=== PATIENT | female | born 1985 | race African-American/Black ===

== ENCOUNTER 2023-04-22 22:44 | Observation (INO) | payer BC ==
[2023-04-23] MEDS ORDERED: Dextrose 50% Abboject 50 ML SYRINGE SLOW IVP PRN (00:20)
[2023-04-23] MEDS ORDERED: Dextrose 5% in Water 1,000 ML IV PRN (00:20)
[2023-04-23] MEDS ORDERED: Glucagon 1 MG/ML KIT IM PRN (00:20)
[2023-04-23] MEDS ORDERED: Ondansetron PF 4 MG/2 ML Vial IVP PRN (00:20)
[2023-04-23] MEDS ORDERED: Insulin Regular 300 UNITS/3 ML VIAL SC SCH (00:30)
[2023-04-23] MEDS ORDERED: Famotidine/PF 20 mg/2ml Vial SLOW IVP SCH (00:30)
[2023-04-23] MEDS ORDERED: Magnesium 2 GM/50 ML(in water) 2 GM in Premix Bag 1 BAG IVPB SCH (00:30)
[2023-04-23] MEDS ORDERED: Thiamine HCl 200 MG/2 ML VIAL SLOW IVP SCH ×2 (00:30→21:00)
[2023-04-23] MEDS ORDERED: Potassium Chloride 20 MEQ in Premix Bag 1 BAG IVPB SCH (00:30)
[2023-04-23] MEDS: Morphine 2 MG/ML VIAL SLOW IVP PRN ×6 (01:21→21:57)
[2023-04-23] MEDS: NS 0.9% w/ 40 MEQ KCL 1,000 ML IV SCH ×2 (01:33→08:40)
[2023-04-23 04:54] LABS: #Basophils 0.1 10x3/uL (0.0-0.2); #Eosinphils 0.3 10x3/uL (0.0-0.5); #Monocytes 0.5 10x3/uL (0.0-1.1); #Neutrophils 3.2 10x3/uL (1.5-8.4); %Basophils 0.8 % (0.0-2.0); %Eosinophils 5.2 % (0.0-6.0); %Lymphocytes 32.7 % (18.0-47.0); %Monocytes 8.7 % (0.0-10.0); %Neutrophils 52.3 % (40.0-75.0); Hematocrit 34.6 % (34.9-44.5); Hemoglobin 12.3 g/dL (12.0-15.5); Mean Corpuscular HGB CONC 35.5 g/dL (32.0-36.0); Mean Corpuscular Hemoglobin 30.1 pg (27.0-33.0); Mean Corpuscular Volume 84.8 fl (81.6-98.3); Platelet Count 245 10x3/uL (150-450); RBC Distribution Width 12.7 % (11.5-14.5); Red Blood Cell (RBC) Count 4.08 10x6/uL (3.90-5.03); White Blood Cell (WBC) Count 6.1 10x3/uL (3.5-10.5)
[2023-04-23 05:13] LABS: ALT (SGPT) 60 U/L (8-55); AST (SGOT) 94 U/L (5-34); Albumin 3.5 g/dL (3.5-5.0); Alkaline Phosphatase 68 U/L (40-110); Anion Gap 16 mmol/L (10-20); BUN (Urea Nitrogen) Less than 4 mg/dL (7.0-18.7); Bilirubin, Total 0.6 mg/dL (0.2-1.2); Calc. Creatinine Clearance 0 mL/min (70-130); Calcium 7.8 mg/dL (7.8-10.44); Carbon Dioxide 16 mmol/L (22-29); Chloride 102 mmol/L (98-107); Estimated GFR 116; Globulin 2.5 g/dL (2.4-3.5); Glucose 226 mg/dL (70-105); Lipase 41 U/L (8-78); Phosphorus 2.1 mg/dL (2.3-4.7); Potassium 3.5 mmol/L (3.5-5.1); Sodium 130 mmol/L (136-145)
[2023-04-23 05:34] LABS: Cardiac Risk 4.9 (Less than 4.5); Cholesterol 107 mg/dl (< 200 Desired); HDL Cholesterol 22 mg/dL (>60 Neg Risk); Triglycerides 496 mg/dL (Less than 150)
[2023-04-23] MEDS ORDERED: Potassium Phosphate 30 MMOL in Sodium Chloride 0.9% 250 ML 250 ML IVPB SCH ×2 (06:00→08:00)
[2023-04-23] MEDS: Magnesium 2 GM/50 ML(in water) 2 GM in Premix Bag 1 BAG IVPB SCH ×2 (06:18→09:01)
[2023-04-23 06:35] VITALS: BMI 28.2
[2023-04-23] MEDS ORDERED: HYDROmorphone 0.5 MG/0.5 ML SYRINGE SLOW IVP SCH (06:45)
[2023-04-23 06:54] LABS: Magnesium 2.1 mg/dL (1.6-2.6)
[2023-04-23] MEDS: Famotidine/PF 20 mg/2ml Vial SLOW IVP SCH ×2 (08:40→20:01)
[2023-04-23] MEDS: Folic Acid 1 MG TAB PO SCH (08:41)
[2023-04-23] MEDS: Prenatal Vitamin 1 TAB PO SCH (11:29)
[2023-04-23 12:06] LABS: #Basophils 0.1 10x3/uL (0.0-0.2); #Eosinphils 0.2 10x3/uL (0.0-0.5); #Monocytes 0.6 10x3/uL (0.0-1.1); %Monocytes 8.5 % (0.0-10.0); %Neutrophils 58.1 % (40.0-75.0); Hematocrit 33.6 % (34.9-44.5); Hemoglobin 11.8 g/dL (12.0-15.5); Mean Corpuscular HGB CONC 35.1 g/dL (32.0-36.0); Mean Corpuscular Hemoglobin 30.3 pg (27.0-33.0); Mean Corpuscular Volume 86.4 fl (81.6-98.3); Mean Platelet Volume 11.2 fl (7.4-10.4); Platelet Count 242 10x3/uL (150-450); RBC Distribution Width 13.1 % (11.5-14.5); Red Blood Cell (RBC) Count 3.89 10x6/uL (3.90-5.03)
[2023-04-23 12:33] LABS: Anion Gap 15 mmol/L (10-20); BUN (Urea Nitrogen) Less than 4 mg/dL (7.0-18.7); Calc. Creatinine Clearance 137 mL/min (70-130); Calcium 7.8 mg/dL (7.8-10.44); Carbon Dioxide 18 mmol/L (22-29); Chloride 102 mmol/L (98-107); Estimated GFR 113; Glucose 281 mg/dL (70-105); Magnesium 2.1 mg/dL (1.6-2.6); Phosphorus 2.9 mg/dL (2.3-4.7); Potassium 3.9 mmol/L (3.5-5.1); Sodium 131 mmol/L (136-145)
[2023-04-23 12:50] LABS: Hemoglobin A1c 10.9 % (4.0-6.0)
[2023-04-23] MEDS: HYDROcodone/Acetaminophen 5/325 mg Tablet PO PRN ×2 (15:51→19:58)
[2023-04-23] MEDS: HumaLOG 300 UNITS/3 ML VIAL SC PRN ×2 (17:11→22:24)
[2023-04-23] MEDS ORDERED: metFORMIN 500 MG TAB PO SCH (18:00)
[2023-04-24] MEDS: HYDROcodone/Acetaminophen 5/325 mg Tablet PO PRN ×3 (00:19→12:38)
[2023-04-24] MEDS: Morphine 2 MG/ML VIAL SLOW IVP PRN ×2 (02:15→06:53)
[2023-04-24 04:59] LABS: #Basophils 0.1 10x3/uL (0.0-0.2); #Eosinphils 0.3 10x3/uL (0.0-0.5); #Monocytes 0.6 10x3/uL (0.0-1.1); %Basophils 0.7 % (0.0-2.0); %Eosinophils 3.7 % (0.0-6.0); %Lymphocytes 32.2 % (18.0-47.0); %Monocytes 7.9 % (0.0-10.0); %Neutrophils 55.4 % (40.0-75.0); Hematocrit 31.3 % (34.9-44.5); Hemoglobin 10.9 g/dL (12.0-15.5); Mean Corpuscular HGB CONC 34.8 g/dL (32.0-36.0); Mean Corpuscular Hemoglobin 30.1 pg (27.0-33.0); Mean Corpuscular Volume 86.5 fl (81.6-98.3); Mean Platelet Volume 11.4 fl (7.4-10.4); Platelet Count 224 10x3/uL (150-450); RBC Distribution Width 12.7 % (11.5-14.5); Red Blood Cell (RBC) Count 3.62 10x6/uL (3.90-5.03); White Blood Cell (WBC) Count 7.2 10x3/uL (3.5-10.5)
[2023-04-24 05:10] LABS: Anion Gap 12 mmol/L (10-20); BUN (Urea Nitrogen) Less than 4 mg/dL (7.0-18.7); Calc. Creatinine Clearance 137 mL/min (70-130); Calcium 8.8 mg/dL (7.8-10.44); Carbon Dioxide 21 mmol/L (22-29); Chloride 103 mmol/L (98-107); Estimated GFR 113; Glucose 216 mg/dL (70-105); Potassium 3.5 mmol/L (3.5-5.1); Sodium 132 mmol/L (136-145)
[2023-04-24] MEDS ORDERED: Methylergonovine 0.2 MG/ML VIAL IM SCH (05:45)
[2023-04-24] MEDS: HumaLOG 300 UNITS/3 ML VIAL SC PRN ×3 (06:55→16:47)
[2023-04-24] MEDS ORDERED: Fenofibrate 48 MG TAB PO SCH (09:00)
[2023-04-24] MEDS ORDERED: Ketorolac Tromethamine 30 MG/ML VIAL IVP SCH ×2 (09:15→16:15)
[2023-04-24] MEDS: Folic Acid 1 MG TAB PO SCH (09:33)
[2023-04-24] MEDS: metFORMIN 500 MG TAB PO SCH ×2 (09:34→16:47)
[2023-04-24] MEDS: Famotidine/PF 20 mg/2ml Vial SLOW IVP SCH (09:35)
[2023-04-24] MEDS: Prenatal Vitamin 1 TAB PO SCH (09:35)
[2023-04-24 11:02] LABS: ALT (SGPT) 38 U/L (8-55); AST (SGOT) 40 U/L (5-34); Albumin 3.3 g/dL (3.5-5.0); Alkaline Phosphatase 71 U/L (40-110); Bilirubin, Direct 0.2 mg/dL (0.1-0.3); Bilirubin, Total 0.4 mg/dL (0.2-1.2); Protein, Total 5.8 g/dL (6.0-8.3)
[2023-04-24 15:57] VITALS: BP 107/61; TEMP 97.8
== END 2023-04-24 18:45 | disposition home or self-care (01) ==
LOC: CSHTELE 04-23 00:03 → INTOOBSV 04-23 00:03
PROVIDERS: ADMIT Student in an Organized Health Care Education/Training Program; ATTEND Nurse Practitioner Acute Care
DX: O99.611 Diseases of the digestive system complicating pregnancy, first trimester (principal); K85.20 Alcohol induced acute pancreatitis without necrosis or infection; K86.0 Alcohol-induced chronic pancreatitis; O99.281 Endocrine, nutritional and metabolic diseases complicating pregnancy, first trimester; E87.20 Acidosis, unspecified; E78.5 Hyperlipidemia, unspecified; E86.0 Dehydration; O16.1 Unspecified maternal hypertension, first trimester; O24.911 Unspecified diabetes mellitus in pregnancy, first trimester; O99.331 Smoking (tobacco) complicating pregnancy, first trimester; F17.210 Nicotine dependence, cigarettes, uncomplicated; O99.311 Alcohol use complicating pregnancy, first trimester; F10.10 Alcohol abuse, uncomplicated; R74.01 Elevation of levels of liver transaminase levels; Z3A.00 Weeks of gestation of pregnancy not specified; Z91.041 Radiographic dye allergy status; Z79.899 Other long term (current) drug therapy; Z79.4 Long term (current) use of insulin
CPT/HCPCS: 36415; 36416; 76801; 76856; 80048; 80053; 80061; 80076; 82010; 83036; 83690; 83735; 84100; 85025; 86850; 86900; 86901; 96374; 96375; 96376; G0378; J1170; J1815; J1885; J2272; J2405; J3411; J3475; J3480; J7050; S0028

== ENCOUNTER 2023-10-05 15:03 | Emergency (ER) | payer BC ==
[2023-10-05] MEDS ORDERED: Ketorolac Tromethamine 30 MG (1 mL) VIAL ONE (18:11)
== END 2023-10-05 19:30 | disposition home or self-care (01) ==
LOC: CSHERS 15:03
DX: S29.019A Strain of muscle and tendon of unspecified wall of thorax, initial encounter (principal); M62.838 Other muscle spasm; E78.5 Hyperlipidemia, unspecified; I10 Essential (primary) hypertension; E11.9 Type 2 diabetes mellitus without complications; V59.3XXA Occupant (driver) (passenger) of pick-up truck or van injured in unspecified nontraffic accident, initial encounter
CPT/HCPCS: 71045; 93005; 96372; J1885